=== PATIENT | male | born 1955 | race Caucasian/White ===

== ENCOUNTER 2022-02-04 21:04 | Emergency (ER) | payer OTHER ==
[~2022-02-04] VITALS: Ht 180.3 cm; Wt 108.9 kg
[2022-02-04 21:04] VITALS: BP 121/80
--- NOTE | 2022-02-04 21:10 | NUR ---
TO LOBBY A/W BED AMBULATORY
[2022-02-04] MEDS ORDERED: HYDROcodone/APAP 5/325 MG 1 TAB TAB PO ONE (23:30)
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
--- NOTE | 2022-02-05 00:12 | NUR ---
PT IN LOBBY
[2022-02-05] MEDS ORDERED: NAPR-54 PO (02:32)
[2022-02-05] MEDS ORDERED: ACET-8386 PO (02:32)
[2022-02-05 02:50] VITALS: BP 121/80
--- NOTE | 2022-02-05 02:50 | NUR ---
Patient discharged with v/s stable. Written and verbal after care instructions given and explained. Patient alert, oriented and verbalized understanding of instructions. Ambulatory with steady gait. All questions addressed prior to discharge. ID band removed. Patient advised to follow up with PMD. Rx of NAPROSYN HYDROCODON given. Patient educated on indication of medication including possible reaction and side effects. Opportunity to ask questions provided and answered.
== END 2022-02-05 02:50 | disposition home or self-care (01) ==
LOC: MED 21:04
DX: S22.32XA Fracture of one rib, left side, initial encounter for closed fracture (principal); S00.03XA Contusion of scalp, initial encounter; Y04.2XXA Assault by strike against or bumped into by another person, initial encounter; Y93.89 Activity, other specified; Y92.89 Other specified places as the place of occurrence of the external cause; Y99.8 Other external cause status
CPT/HCPCS: 70450; 71101; 99284